=== PATIENT | female | born 1995 | race African-American/Black ===

== ENCOUNTER 2021-12-12 14:56 | Emergency (ER) | payer OTHER, SELFPAY ==
[2021-12-12 15:11] VITALS: BP 123/80; PULSE 81; RESP 18; TEMP 36.8; O2SAT 99
--- NOTE | 2021-12-12 15:50 | ED_ITS ---
HPI - Psych General Chief Complaint: Psychiatric Symptoms Stated Complaint: Mental Health concerns Time Seen by Provider: 12/12/21 15:33 Source: patient and family Mode of arrival: Ambulatory History of Present Illness HPI Narrative: 25-year-old female who is 1 month . Is not currently . Also has a [id number] at home. Has a history of bipolar disorder. Has not been on any of her bipolar medicines and she 1st became and potentially even longer than that. She does not know exactly what medicine she has been on in the past. She is new to the area. She is . Her is active duty. Her mother is also here to help with the kids. Sounds like the patient has had to uneventful pregnancies. Is here with her for evaluation of confusion and hallucinations. According to both the patient and her he started noticing that she is was very confused a couple days ago. They were at the store picking out some new clothes when she brought him) were all different sizes. He also states that last evening he asked her to change their laundry from the washer to the dryer. They are currently staying in the [facility] which[place] essentially a hotel until they get permanent housing here locally. The laundry was at a laundromat located within the [place]. states she went down him put money in the clothespin drier operator but never changed the close over to the clothespin drier operator. She has also been seeing things. She states that she sees her 's stepfather who has . She is also hearing things. She is currently hearing things. She states she hears children in the room. She is not overly concerned about these hallucinations. She denies alcohol or drug use. She states she feels somewhat depressed because of the move but no suicidal nor homicidal ideations. Related Data Allergies Allergy/AdvReac Type Severity Reaction Status Date / Time lithium AdvReac Verified 12/12/21 22:27 Review of Systems Constitutional Constitutional: Reports system reviewed and no additional complaints, except as documented Cardiovascular Cardiovascular: Denies chest pain and Denies dyspnea Respiratory Respiratory: Denies dyspnea Gastrointestinal Gastrointestinal: Denies abdominal pain Psychiatric Psychiatric: Reports system reviewed and no additional complaints, except as documented Hematologic/Lymphatic On Anticoagulants: No Patient History Medical History Bipolar disorder Social History Smoking Status: Never smoker Smoking Status: Never smoker alcohol intake frequency: a few times a month Substance Use Type: does not use Exam Initial Vital Signs Initial Vital Signs: Vital Signs Temperature 98.3 F 12/12/21 15:11 Pulse Rate 81 12/12/21 15:11 Respiratory Rate 18 12/12/21 15:11 Blood Pressure 123/80 12/12/21 15:11 Pulse Oximetry 99 12/12/21 15:11 Oxygen Delivery Method 12/12/21 15:11 HENMT Head: normal to inspection and normocephalic Resp Effort & Inspection: normal respiratory effort Cardio Rate: regular rate GI Inspection: normal to inspection Skin General: no rashes or lesions noted Neuro General: patient alert, patient awake and moves all extremities Extrem General: normal to inspection Psych Other: Patient is alert oriented. She is calm. Denies suicidal nor homicidal ideation. She does endorse both visual and auditory hallucinations. She does have a very flat affect. Is cooperative. Course Orders Ordered: Discontinued Medications Sodium Chloride (Normal Saline 0.9%) 1,000 mls @ 1,000 mls/hr IV BOLUS ONE Stop: 12/12/21 19:49 Last Infusion: 12/12/21 21:56 Dose: 0 mls/hr Documented By: Admin: 12/12/21 19:20 Dose: 1,000 mls/hr Documented By: MISBAH Sodium Chloride (Normal Saline 0.9%) 1,000 mls @ 1,000 mls/hr IV BOLUS ONE Stop: 12/12/21 21:39 Last Infusion: 12/12/21 23:24 Dose: 0 mls/hr Documented By: Admin: 12/12/21 21:56 Dose: 1,000 mls/hr Documented By: MISBAH Lorazepam (Lorazepam 0.5 Mg Tablet) 1 mg PO NOW ONE Stop: 12/13/21 11:50 Last Admin: 12/13/21 11:53 Dose: 1 mg Documented By: IRLANDA Olanzapine (Olanzapine 2.5 Mg Tablet) 2.5 mg PO NOW ONE Stop: 12/12/21 15:53 Last Admin: 12/12/21 16:08 Dose: 2.5 mg Documented By: TARA Trazodone HCl (Trazodone 50 Mg Tablet) 50 mg PO BEDTIME TRACEY Last Admin: 12/12/21 21:17 Dose: 50 mg Documented By: MISBAH Vital Signs Vital signs: Vital Signs - 8 hr 12/13/21 15:44 Pulse Rate 85 Respiratory Rate 14 Blood Pressure 135/80 Pulse Oximetry 99 MDM - Psych Lab Data Attestation: I reviewed the patient's lab results. Result diagrams: 12/12/21 16:00 12/13/21 00:01 Labs: Lab Results 12/12/21 12/12/21 12/12/21 Range/Units 15:20 16:00 16:00 WBC 9.2 (4.5-11.0) X10^3/uL RBC 4.65 (4.0-5.2) X10^6/uL Hgb 12.8 (12.0-16.0) g/dL Hct 38.6 (36-46) % MCV 83.2 (80-100) fL MCH 27.6 (26-34) PG MCHC 33.1 (30-36) % RDW 14.0 (11.6-14.8) % Plt Count 353 (150-400) X10^3/uL Neut % (Auto) 67.8 (50-75) % Lymph % (Auto) 23.2 L (25-40) % [place] % (Auto) 7.1 (3-14) % Eos % (Auto) 1.1 L (2-4) % Baso % (Auto) 0.8 (0-2) % Neut # (Auto) 6300 (8616-1658) /uL Lymph # (Auto) 2100 (5363-0892) /uL [place] # (Auto) 700 (0-900) /uL Eos # (Auto) 100 (0-450) /uL Baso # (Auto) 100 (0-100) /uL Sodium (137-145) mmol/L Potassium (3.4-5.1) mmol/L Chloride (98-107) mmol/L Carbon Dioxide (22-32) mmol/L BUN (7-17) mg/dL Creatinine (0.52-1.04) mg/dL Estimated GFR (>60) mL/min BUN/Creatinine Ratio (6-22) Glucose (70-100) mg/dL Calcium (8.4-10.2) mg/dL Magnesium (1.6-2.3) mg/dL Total Bilirubin (0.2-1.3) mg/dL AST (14-36) IU/L ALT (<35) IU/L Alkaline Phosphatase (38-126) U/L Total Creatine Kinase (30-135) U/L Total Protein (6.3-8.2) g/dL Albumin (3.5-5.0) g/dL Globulin (1.7-4.1) g/dL Albumin/Globulin Ratio (1.0-2.8) Lipase (23-300) U/L TSH (0.47-4.68) uIU/mL Urine Color Urine Appearance Urine pH (4.5-8.0) Ur Specific [place] (1.000-1.035) Urine Protein (Negative) Urine Glucose (UA) (Negative) g/dL Urine Ketones (NEGATIVE) Urine Occult Blood (Negative) Urine Nitrate (Negative) Urine Bilirubin (NEGATIVE) Urine Urobilinogen (0.2) E.U./dL Ur Leukocyte Esterase (NEGATIVE) Urine RBC (0-5/HPF) Urine WBC (0-5/HPF) Ur Squamous Epith Cells (0-5/HPF) Urine Bacteria (None) Ur Culture Indicated? Micro UA Comment Urine Test (Negative) Salicylates (<20) mg/dL U Opiates 300ng/mL cut (Negative) Ur Oxycodone Screen (Negative) Urine Methadone Screen (Negative) Acetaminophen < 10 (10-30) ug/mL Ur Barbiturates Screen (Negative) U Tricyclic Antidepress (Negative) Ur Phencyclidine Scrn (Negative) Ur Amphetamines Screen (Negative) U Methamphetamines Scrn (Negative) Ur MDMA Scrn (Ecstasy) (Negative) U Benzodiazepines Scrn (Negative) Urine Cocaine Screen (Negative) U Marijuana (THC) Screen (Negative) Ethyl Alcohol ( - 10) mg/dL SARS-CoV-2 (PCR) Negative (Negative) 12/12/21 12/12/21 12/12/21 Range/Units 16:00 16:00 16:00 WBC (4.5-11.0) X10^3/uL RBC (4.0-5.2) X10^6/uL Hgb (12.0-16.0) g/dL Hct (36-46) % MCV (80-100) fL MCH (26-34) PG MCHC (30-36) % RDW (11.6-14.8) % Plt Count (150-400) X10^3/uL Neut % (Auto) (50-75) % Lymph % (Auto) (25-40) % [place] % (Auto) (3-14) % Eos % (Auto) (2-4) % Baso % (Auto) (0-2) % Neut # (Auto) (4288-5691) /uL Lymph # (Auto) (7025-0263) /uL [place] # (Auto) (0-900) /uL Eos # (Auto) (0-450) /uL Baso # (Auto) (0-100) /uL Sodium 140 (137-145) mmol/L Potassium 4.1 (3.4-5.1) mmol/L Chloride 106 (98-107) mmol/L Carbon Dioxide 25 (22-32) mmol/L BUN 12 (7-17) mg/dL Creatinine 1.17 H (0.52-1.04) mg/dL Estimated GFR > 60 (>60) mL/min BUN/Creatinine Ratio 10.3 (6-22) Glucose 104 H (70-100) mg/dL Calcium 9.7 (8.4-10.2) mg/dL Magnesium 2.0 (1.6-2.3) mg/dL Total Bilirubin 1.0 (0.2-1.3) mg/dL AST 39 H (14-36) IU/L ALT 24 (<35) IU/L Alkaline Phosphatase 94 (38-126) U/L Total Creatine Kinase 812 H (30-135) U/L Total Protein 8.5 H (6.3-8.2) g/dL Albumin 4.9 (3.5-5.0) g/dL Globulin 3.6 (1.7-4.1) g/dL Albumin/Globulin Ratio 1.4 (1.0-2.8) Lipase 127 (23-300) U/L TSH 3.00 (0.47-4.68) uIU/mL Urine Color Urine Appearance Urine pH (4.5-8.0) Ur Specific [place] (1.000-1.035) Urine Protein (Negative) Urine Glucose (UA) (Negative) g/dL Urine Ketones (NEGATIVE) Urine Occult Blood (Negative) Urine Nitrate (Negative) Urine Bilirubin (NEGATIVE) Urine Urobilinogen (0.2) E.U./dL Ur Leukocyte Esterase (NEGATIVE) Urine RBC (0-5/HPF) Urine WBC (0-5/HPF) Ur Squamous Epith Cells (0-5/HPF) Urine Bacteria (None) Ur Culture Indicated? Micro UA Comment Urine Test (Negative) Salicylates < 1.0 (<20) mg/dL U Opiates 300ng/mL cut (Negative) Ur Oxycodone Screen (Negative) Urine Methadone Screen (Negative) Acetaminophen (10-30) ug/mL Ur Barbiturates Screen (Negative) U Tricyclic Antidepress (Negative) Ur Phencyclidine Scrn (Negative) Ur Amphetamines Screen (Negative) U Methamphetamines Scrn (Negative) Ur MDMA Scrn (Ecstasy) (Negative) U Benzodiazepines Scrn (Negative) Urine Cocaine Screen (Negative) U Marijuana (THC) Screen (Negative) Ethyl Alcohol < 10 ( - 10) mg/dL SARS-CoV-2 (PCR) (Negative) 12/12/21 12/12/21 12/12/21 Range/Units 17:54 17:54 17:54 WBC (4.5-11.0) X10^3/uL RBC (4.0-5.2) X10^6/uL Hgb (12.0-16.0) g/dL Hct (36-46) % MCV (80-100) fL MCH (26-34) PG MCHC (30-36) % RDW (11.6-14.8) % Plt Count (150-400) X10^3/uL Neut % (Auto) (50-75) % Lymph % (Auto) (25-40) % [place] % (Auto) (3-14) % Eos % (Auto) (2-4) % Baso % (Auto) (0-2) % Neut # (Auto) (7542-1814) /uL Lymph # (Auto) (9573-0497) /uL [place] # (Auto) (0-900) /uL Eos # (Auto) (0-450) /uL Baso # (Auto) (0-100) /uL Sodium (137-145) mmol/L Potassium (3.4-5.1) mmol/L Chloride (98-107) mmol/L Carbon Dioxide (22-32) mmol/L BUN (7-17) mg/dL Creatinine (0.52-1.04) mg/dL Estimated GFR (>60) mL/min BUN/Creatinine Ratio (6-22) Glucose (70-100) mg/dL Calcium (8.4-10.2) mg/dL Magnesium (1.6-2.3) mg/dL Total Bilirubin (0.2-1.3) mg/dL AST (14-36) IU/L ALT (<35) IU/L Alkaline Phosphatase (38-126) U/L Total Creatine Kinase (30-135) U/L Total Protein (6.3-8.2) g/dL Albumin (3.5-5.0) g/dL Globulin (1.7-4.1) g/dL Albumin/Globulin Ratio (1.0-2.8) Lipase (23-300) U/L TSH (0.47-4.68) uIU/mL Urine Color Yellow Urine Appearance Clear Urine pH 6.5 (4.5-8.0) Ur Specific [place] <=1.005 (1.000-1.035) Urine Protein Negative (Negative) Urine Glucose (UA) Negative (Negative) g/dL Urine Ketones Negative (NEGATIVE) Urine Occult Blood 3+ H (Negative) Urine Nitrate Negative (Negative) Urine Bilirubin Negative (NEGATIVE) Urine Urobilinogen 0.2 (0.2) E.U./dL Ur Leukocyte Esterase Negative (NEGATIVE) Urine RBC None seen (0-5/HPF) Urine WBC 0-1/hpf (0-5/HPF) Ur Squamous Epith Cells 10-30 /hpf H (0-5/HPF) Urine Bacteria Few (2-10) H (None) Ur Culture Indicated? Cult not indicated Micro UA Comment Few clue cells Urine Test Negative (Negative) Salicylates (<20) mg/dL U Opiates 300ng/mL cut Negative (Negative) Ur Oxycodone Screen Negative (Negative) Urine Methadone Screen Negative (Negative) Acetaminophen (10-30) ug/mL Ur Barbiturates Screen Negative (Negative) U Tricyclic Antidepress Negative (Negative) Ur Phencyclidine Scrn Negative (Negative) Ur Amphetamines Screen Negative (Negative) U Methamphetamines Scrn Negative (Negative) Ur MDMA Scrn (Ecstasy) Negative (Negative) U Benzodiazepines Scrn Negative (Negative) Urine Cocaine Screen Negative (Negative) U Marijuana (THC) Screen Negative (Negative) Ethyl Alcohol ( - 10) mg/dL SARS-CoV-2 (PCR) (Negative) 12/13/21 Range/Units 00:01 WBC (4.5-11.0) X10^3/uL RBC (4.0-5.2) X10^6/uL Hgb (12.0-16.0) g/dL Hct (36-46) % MCV (80-100) fL MCH (26-34) PG MCHC (30-36) % RDW (11.6-14.8) % Plt Count (150-400) X10^3/uL Neut % (Auto) (50-75) % Lymph % (Auto) (25-40) % [place] % (Auto) (3-14) % Eos % (Auto) (2-4) % Baso % (Auto) (0-2) % Neut # (Auto) (7711-0069) /uL Lymph # (Auto) (8635-7432) /uL [place] # (Auto) (0-900) /uL Eos # (Auto) (0-450) /uL Baso # (Auto) (0-100) /uL Sodium 141 (137-145) mmol/L Potassium 3.8 (3.4-5.1) mmol/L Chloride 111 H (98-107) mmol/L Carbon Dioxide 22 (22-32) mmol/L BUN 13 (7-17) mg/dL Creatinine 1.03 (0.52-1.04) mg/dL Estimated GFR > 60 (>60) mL/min BUN/Creatinine Ratio 12.6 (6-22) Glucose 109 H (70-100) mg/dL Calcium 8.5 (8.4-10.2) mg/dL Magnesium (1.6-2.3) mg/dL Total Bilirubin (0.2-1.3) mg/dL AST (14-36) IU/L ALT (<35) IU/L Alkaline Phosphatase (38-126) U/L Total Creatine Kinase 643 H (30-135) U/L Total Protein (6.3-8.2) g/dL Albumin (3.5-5.0) g/dL Globulin (1.7-4.1) g/dL Albumin/Globulin Ratio (1.0-2.8) Lipase (23-300) U/L TSH (0.47-4.68) uIU/mL Urine Color Urine Appearance Urine pH (4.5-8.0) Ur Specific [place] (1.000-1.035) Urine Protein (Negative) Urine Glucose (UA) (Negative) g/dL Urine Ketones (NEGATIVE) Urine Occult Blood (Negative) Urine Nitrate (Negative) Urine Bilirubin (NEGATIVE) Urine Urobilinogen (0.2) E.U./dL Ur Leukocyte Esterase (NEGATIVE) Urine RBC (0-5/HPF) Urine WBC (0-5/HPF) Ur Squamous Epith Cells (0-5/HPF) Urine Bacteria (None) Ur Culture Indicated? Micro UA Comment Urine Test (Negative) Salicylates (<20) mg/dL U Opiates 300ng/mL cut (Negative) Ur Oxycodone Screen (Negative) Urine Methadone Screen (Negative) Acetaminophen (10-30) ug/mL Ur Barbiturates Screen (Negative) U Tricyclic Antidepress (Negative) Ur Phencyclidine Scrn (Negative) Ur Amphetamines Screen (Negative) U Methamphetamines Scrn (Negative) Ur MDMA Scrn (Ecstasy) (Negative) U Benzodiazepines Scrn (Negative) Urine Cocaine Screen (Negative) U Marijuana (THC) Screen (Negative) Ethyl Alcohol ( - 10) mg/dL SARS-CoV-2 (PCR) (Negative) MDM Narrative Medical decision making narrative: Patient is 1 month . Has had a history of bipolar but has not been on any of her medications for at least 2 years if not longer. She does not know what medication she has been on. Her does not know a medication she has been on. Her mother does not know what medication she has been on. Patient has had some significant life changes recently. They are new to the area. The patient's is active duty. They do not have stable housing at the moment. Patient does admit to both auditory and visual hallucinations. She is calm here in the ER. Patient is agreeable to inpatient stay. Patient's also agrees with this as well. Patient is currently not . Has been seen by social work. Care turned over to Dr. Cline to continue to evaluate and disposition. Dr Liriano 12/13/21: Assumed care of patient this morning she has remained stable. She does appear better today than she was yesterday. Patient was accepted at [facility]. She will be transported. She remains voluntary. She stated for transport. Discharge Plan Departure Patient Disposition: Xfer Psychiatric Hosp Clinical Impression: Auditory hallucination, Bipolar disorder, Hallucination, visual
[2021-12-12 15:56] LABS: COVID19 -Nasal RAPID Negative (Negative)
--- NOTE | 2021-12-12 15:59 | CM.SWNOTE ---
TICKET SORTER Assessment TICKET SORTER - Airdox Fitter Assessment M TICKET SORTER/Airdox Fitter Assessment Time Spent with Patient Start date 12/12/21 Visit Start Time 15:10 End date 12/12/21 Visit End Time 15:25 Total time Care Management spent on 15 minutes patient visit-in minutes Mental Health Screening Include Onset, Duration, Intensity Presenting Problem Patient presents to ED with due to 's concern of patient's increase of confusion, spaciness, lack of sleep and lack of food or drink. endorses that patient has been having visual and auditory hallucinations. endorses that patient' s forgetfulness has been impacting patient's ability to care for babies. Patient's mother arrived to help care for kids and reported a concern for patient's behaviors and presentation as well. Precipitating Event(s) Patient is 1 month with a 1 month old and 19 month old, patient has not been taking medication for bipolar since she has been and . Patient recently moved to [place] with active duty [place] and patient is not established with PCP or MH providers. It is reported that patient is not currently her new born. Patient Strengths Patient endorses safety and supports. Current Behavioral Health Provider(s) Patient endorses hx of Include Facility, Provider, Ph. # psychiatrist and therapist but denies current providers since recently moving to the area. Psych. Hx Mental Health and Chemical Patient has hx of Bipolar. Dependency Patient denies current medications other than control. Patient believes she has a hx taking Rx trazadone and hydroxyzine and reports that she may be allergic to Lythium. Patient denies substance use. Patient endorses recent ETOH consumption a few days ago. Family Hx of Behavioral Abuse None reported Psychiatric Hospitalizations (date(s)/ Patient endorses inpatient location) hospitalization 4-5 years ago in [place]. Psychosocial information & Support Patient is 25 y/o female who Systems recently moved to [facility] with , 1 month old and 19 month children. Patient endorses and mother as supports. Patient's mother recently flew in to help out with childcare. School/Work None reported Legal Concerns Legal Matters - Outstanding Issues None reported Mental Status Stated Mood ok Affect (Congruent with Mood?) Euthymic, Flat,congruent with mood Thought Content - Specify/Describe Patient's endorses Obsessions, Delusions, Hallucinations that patient has been seeing his relative and talking to him. endorses that patient has been whispering to self and talking to people as if they're there. endorses that patient has been looking through peephole concerned that someone is there. also reports that on the drive to ED, patient stated I feel like I am in a dream, wow. Thought Processes (Nvhvnpm-Imytwtcw-Uqoh logical with some thought Dsjbgqkq-Bbhpwbei-Juaemwjzqv- blocking. Patient is slow to Vicbjsitaptpwv-Jssvqaw-Mnwibjltktlt- respond and unable to respond Thought Blocking) to some questions. Speech (Iygvyg-Qmlw-Iipsrcn-Rapid-Soft- slow, soft Loud-Pressured) Motor (Gcwwcs-Blzntvjqy-Nogb-Other) normal/slow, not formally assessed Insight (Vyor-Kqdh-Nvec/Limited) limited Judgement (Gyml-Cers-Eqzm/Limited) limited Impulse Control (Adequate-Impaired) adequate during assessment Memory (Pjzaqrvct-Hobong-Pyiuvr, somewhat intact, not formally Impaired-Intact) assessed Concentration (Intact-Impaired) intact, but presents as distracted. Attention (Intact-Impaired) intact, but patient presents as distracted Behavior (Appropriate-Inappropriate) Appropriate Additional Comment Patient presents as calm, communicative and cooperative. Risk Assessment Suicidal Ideation (Plan) No Homicidal Ideation (Plan) No Intervention Intervention TICKET SORTER enters triage room to meet with patient. Present in room is show host and patient's , patient provides consent to meet with them present. Patient endorses she presented to ED to get checked out. Patient's endorses concern for patient's current Bipolar episode. It is reported that patient has not been eating, sleeping or drinking well due to patient's current confusion and spaciness. reports that patient was having trouble successfully preparing a bottle for baby, and forgetting food in the microwave. reports that patient put quarters in the washing machine instead of in the coin slot to do laundry and patient has been forgetting conversations that just happen. Patient's endorses that her mother has concern about patient's current behaviors and during recommended that patient be brought to the ED. Per ED provider Dr. Liriano during his assessment with patient and , patient was responding to internal stimuli seeing people and kids in the exam room. Patient and are agreeable to voluntary hospitalization for patient. It is the opinion of this TICKET SORTER that patient would benefit from and is appropriate for voluntary inpatient hospitalization for crisis stabilization and medication management. TICKET SORTER reviews the above with ED provider Dr. Liriano who indicates agreement and understanding. Plan RA Plan TICKET SORTER to seek voluntary inpatient bed for patient when medically clear. MARCELLE Schultz
[2021-12-12] MEDS: OLANZapine 2.5 MG TABLET PO (16:08)
[2021-12-12 16:12] LABS: Add Manual Diff / Slide Review NO; Basophils Absolute Auto 100 /uL (0-100); Basophils Percent Auto 0.8 % (0-2); Eosinophils Absolute Auto 100 /uL (0-450); Eosinophils Percent Auto 1.1 % (2-4); Hematocrit 38.6 % (36-46); Hemoglobin 12.8 g/dL (12.0-16.0); Lymphocytes Absolute Auto 2100 /uL (1100-4500); Lymphocytes Percent Auto 23.2 % (25-40); Mean Corpuscular HGB Conc 33.1 % (30-36); Mean Corpuscular Hemoglobin 27.6 PG (26-34); Mean Corpuscular Volume 83.2 fL (80-100); Monocytes Absolute Auto 700 /uL (0-900); Monocytes Percent Auto 7.1 % (3-14); Neutrophils Absolute Auto 6300 /uL (1500-7000); Neutrophils Percent Auto 67.8 % (50-75); Platelet Count 353 X10^3/uL (150-400); Red Blood Cell Count 4.65 X10^6/uL (4.0-5.2); White Blood Cell Count 9.2 X10^3/uL (4.5-11.0)
[2021-12-12 16:30] LABS: Acetaminophen < 10 ug/mL (10-30); Alanine Aminotransferase 24 IU/L (<35); Albumin 4.9 g/dL (3.5-5.0); Albumin Globulin Ratio 1.4 (1.0-2.8); Alkaline Phosphatase 94 U/L (38-126); Aspartate Aminotransferase 39 IU/L (14-36); BUN Creatinine Ratio 10.3 (6-22); Blood Urea Nitrogen 12 mg/dL (7-17); Calcium 9.7 mg/dL (8.4-10.2); Carbon Dioxide 25 mmol/L (22-32); Chloride 106 mmol/L (98-107); Estimated Glomerular Filt Rate > 60 mL/min (>60); Ethanol (ETOH) < 10 mg/dL; Globulin 3.6 g/dL (1.7-4.1); Glucose 104 mg/dL (70-100); HEMOLYSIS 20 (0-50); Lipase 127 U/L (23-300); Potassium 4.1 mmol/L (3.4-5.1); Salicylate < 1.0 mg/dL (<20); Sodium 140 mmol/L (137-145); Total Protein 8.5 g/dL (6.3-8.2)
--- NOTE | 2021-12-12 17:04 | PC.NURSE ---
pt escorted to the BR to provide urine. Pt unable to provide sample at this time. Provided with more juice and water
[2021-12-12 18:00] LABS: Appearance Urine UA CLEAR; Bilirubin Urine UA NEGATIVE (NEGATIVE); Color Urine UA YELLOW; Glucose Urine UA NEGATIVE (Negative); Ketones Urine UA NEGATIVE (NEGATIVE); Leukocyte Esterase Urine UA NEGATIVE (NEGATIVE); Nitrite Urine UA NEGATIVE (Negative); Occult Blood Urine UA 3+ (Negative); Protein Urine UA NEGATIVE (Negative); Specific Gravity Urine UA <=1.005 (1.000-1.035); Urobilinogen Urine UA 0.2 E.U./dL (0.2)
[2021-12-12 18:03] LABS: Pregnancy Test Urine Negative (Negative); UR Morphine/Opiate cutoff 300 Negative (Negative); Ur Creatinine Normal (Normal); Ur Specific Gravity Normal (Normal); Urine Amphetamines Negative (Negative); Urine Barbiturates Negative (Negative); Urine Benzodiazepines Negative (Negative); Urine Cocaine Negative (Negative); Urine MDMA Negative (Negative); Urine Methadone Negative (Negative); Urine Methamphetamines Negative (Negative); Urine Oxycodone Negative (Negative); Urine Phencyclidine Negative (Negative); Urine Tetrahydrocannabinol Negative (Negative); Urine Tricyclic Antidepressant Negative (Negative); Urine pH Normal (Normal)
[2021-12-12 18:05] LABS: pH Urine UA 6.5 (4.5-8.0)
[2021-12-12 18:08] LABS: Bacteria Urine Few (2-10); Culture Indicated Urine Cult Not Indicated; RBC Urine None Seen (0-5/HPF); Squamous Epithelial Cell Urine 10-30 /HPF (0-5/HPF); Urine Comments FEW CLUE CELLS; WBC Urine 0-1/HPF (0-5/HPF)
[2021-12-12 18:45] LABS: Creatine Kinase 812 U/L (30-135)
[2021-12-12] MEDS: SODIUM CHLORIDE 0.9% 1,000 ML 1000 ML IV ×2 (19:20→21:56)
--- NOTE | 2021-12-12 20:04 | CM.SWNOTE ---
Addendum entered by Ramona Beltre 12/12/21 20:52: [facility] intake calls and states that they cannot accommodate patient tonight but suggests calling back in the morning. (Ph. # [phone]). Per intake, provider suggests CT scan due to patient's presentation. COSMETOLOGIST APPRENTICE to inform ED provider. Plan: If patient is still awaiting preauthorization from for [facility], please f/u with [facility] in the morning. MARCELLE Schultz Original Note: COSMETOLOGIST APPRENTICE Note COSMETOLOGIST APPRENTICE calls [facility] intake, it is reported that they have beds and can review patient. COSMETOLOGIST APPRENTICE faxes clinicals for review. [facility] requires preauth from insurance, COSMETOLOGIST APPRENTICE submits preauth request with [employer] online and via phone. Preauthorization for insurance is pending at this time. COSMETOLOGIST APPRENTICE calls [facility] intake, it is reported that they have beds and can review patient. Intake calls back and requests EKG, CK and Magnesium, COSMETOLOGIST APPRENTICE faxes updated labs for review. COSMETOLOGIST APPRENTICE attempts to call [facility] and they request calling back in 15 minutes. Plan: continue to seek voluntary inpatient bed for patient, f/u with [facility] and [facility]. MARCELLE Schultz
[2021-12-12 20:30] VITALS: PULSE 64; O2SAT 100
[2021-12-12 20:31] VITALS: BP 138/76; PULSE 67; O2SAT 100
[2021-12-12 20:44] VITALS: BP 140/74; PULSE 68; O2SAT 90
[2021-12-12] MEDS: TRAZODONE 50 MG TABLET PO (21:17)
[2021-12-13 00:19] LABS: BUN Creatinine Ratio 12.6 (6-22); Blood Urea Nitrogen 13 mg/dL (7-17); Calcium 8.5 mg/dL (8.4-10.2); Carbon Dioxide 22 mmol/L (22-32); Chloride 111 mmol/L (98-107); Creatine Kinase 643 U/L (30-135); Estimated Glomerular Filt Rate > 60 mL/min (>60); Glucose 109 mg/dL (70-100); HEMOLYSIS < 15 (0-50); Potassium 3.8 mmol/L (3.4-5.1); Sodium 141 mmol/L (137-145)
--- NOTE | 2021-12-13 07:57 | PC.NURSE ---
attempted to call and verify preauth status. [facility] ph # [phone] they have not heard anything regarding preauth. Ramona DOMINGOW faxed preauth form yesterday. she explained its up to our facility to obtain that and typically can take up to 24 hours and we will typically here back from [facility] directly regarding this. attempted to call [employer] [phone], unable to verify preauthorization no person to speak directly with except m-f. did attempt to use provider line and could not find a claim regarding patients information. attempted to call [phone] for [facility] unable to reach anyone regarding claims or preauth questions they work m-f and again redirected to call [employer].
--- NOTE | 2021-12-13 08:55 | PC.NURSE ---
MARCELLE Wheatley in speaking with Pt
--- NOTE | 2021-12-13 10:51 | PC.NURSE ---
Pt came into the [facility]or to get out her room for a moment. Pt does appear spacey. Fidgeting with the signs on her door. Forgetting where her room was. Pt directed back to room room, reoriented, and now reading a book
--- NOTE | 2021-12-13 11:20 | PC.NURSE ---
Pt's informed, with pt permission, that pt has been accepted to [facility] and is to go at 1900
--- NOTE | 2021-12-13 11:37 | PC.NURSE ---
Pt up and wandering the halls. Redirectable. Forgetting information I just told her. Calm and cooperative
[2021-12-13] MEDS: LORazepam 0.5 MG TABLET 1 MG PO (11:53)
--- NOTE | 2021-12-13 14:00 | CM.SWNOTE ---
Addendum entered by MARCELLE Day 12/13/21 14:02: ADD: Patient and spouse aware and agreeable to this plan HEMAL Original Note: ENDLESS STEAMER TENDER Note Reviewed chart. [facility] is not open over the weekend to provide a pre-auth for [facility] admission Placed call to [facility], no beds available for active duty spouse Placed call to [facility], faxed clinical. According to ED team, patient has been accepted at [facility] and further coordination will be directly w/ED team HEMAL
[2021-12-13 15:44] VITALS: BP 135/80; PULSE 85; RESP 14; O2SAT 99
--- NOTE | 2021-12-13 18:10 | PC.NURSE ---
Report called to ESTEVAN Jeffers at [facility]
--- NOTE | 2021-12-13 18:47 | PC.NURSE ---
Zeyad RN at [facility] said to hold pt's 2100 Trazodone
== END 2021-12-13 19:15 ==
PROVIDERS: Emergency Medicine; Emergency Provider Emergency Medicine
DX: R44.0 Auditory hallucinations (principal); R44.1 Visual hallucinations; F31.9 Bipolar disorder, unspecified; R07.9 Chest pain, unspecified; Z20.822 Contact with and (suspected) exposure to COVID-19
CPT/HCPCS: 36415; 80048; 80053; 80305; 80320; 80329; 81001; 81025; 82550; 83690; 83735; 84443; 85025; 87635; 93005; 99284; C9803; G0480